=== PATIENT | male | born 1990 | race Caucasian/White ===

== ENCOUNTER 2017-03-05 11:45 | Emergency (ER) | payer MEDICAID, OTHER ==
[~2017-03-05] VITALS: Ht 188 cm; Wt 86.3 kg
[2017-03-05 11:54] VITALS: BP 177/111
[2017-03-05] MEDS ORDERED: AMOX500C PO (14:49)
[2017-03-05] MEDS ORDERED: NORCOTAB PO (14:49)
[2017-03-05] MEDS ORDERED: IBUPROFEN 800 MG TAB PO ONE (15:00)
[2017-03-05] MEDS ORDERED: AMOXICILLIN 500 MG CAP PO ONE (15:00)
== END 2017-03-05 14:59 | disposition home or self-care (01) ==
LOC: M ED 11:45
DX: K02.9 Dental caries, unspecified (principal); R51 Headache

== ENCOUNTER 2017-06-15 13:24 | Emergency (ER) | payer MEDICAID ==
[~2017-06-15] VITALS: Ht 188 cm; Wt 81.8 kg
[~2017-06-15 13:24] MED LIST: AMOX500C PO; NORCOTAB PO
--- NOTE | 2017-06-15 16:39 | REP ---
HISTORY: Shoulder pain. COMPARISON: None. FINDINGS: Three views of the shoulder were performed. The acromioclavicular and glenohumeral relationships are within normal limits. There is no acute fracture or destructive osseous lesion. Signed by Ilia Padilla DO 06/15/2017 07:06 P
[2017-06-15] MEDS ORDERED: IBUP80TA PO (16:46)
[2017-06-15 16:55] VITALS: BP 152/96
== END 2017-06-15 16:56 | disposition home or self-care (01) ==
LOC: M ED 13:24
DX: S43.422A Sprain of left rotator cuff capsule, initial encounter (principal); X58.XXXA Exposure to other specified factors, initial encounter; Y92.89 Other specified places as the place of occurrence of the external cause; Y93.89 Activity, other specified; Y99.8 Other external cause status

== ENCOUNTER 2017-10-04 11:50 | Emergency (ER) | payer MEDICAID | END 2017-10-04 13:58 | disposition home or self-care (01) | LOC: M ED 11:50 | DX: S43.401A Unspecified sprain of right shoulder joint, initial encounter (principal); X50.9XXA Other and unspecified overexertion or strenuous movements or postures, initial encounter; Y92.89 Other specified places as the place of occurrence of the external cause; M95.8 Other specified acquired deformities of musculoskeletal system; Z87.81 Personal history of (healed) traumatic fracture | CPT/HCPCS: 73000 ==

== ENCOUNTER 2017-12-20 21:59 | Emergency (ER) | payer MEDICAID | END 2017-12-20 23:00 | disposition left against medical advice (07) | LOC: M ED 21:59 | DX: S05.92XA Unspecified injury of left eye and orbit, initial encounter (principal); X58.XXXA Exposure to other specified factors, initial encounter; Y92.89 Other specified places as the place of occurrence of the external cause; Z53.21 Procedure and treatment not carried out due to patient leaving prior to being seen by health care provider | CPT/HCPCS: 70486 ==

== ENCOUNTER → 2024-04-15 | Outpatient (REF) | payer MEDICAID ==
[~2024-04-15] MED LIST changes: +BUPR2SUB SL; +BUPR8SUB SL; +HYDR-3715 PO; +IBUP-1022 PO; +IBUP80TA PO; -NORCOTAB PO; +OXAZ15CA4 PO
== END ==
LOC: M LAB REF 16:13
PROVIDERS: ATTEND Physician Assistant
DX: J02.9 Acute pharyngitis, unspecified (principal)